=== PATIENT | female | born 2000 | race Caucasian/White ===

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

== ENCOUNTER 2020-08-22 16:47 | Emergency (ER) | payer MEDICARE, OTHER ==
[2020-08-22] MEDS ORDERED: SODIUM CHLORIDE 0.9% 500 ML 500 ML IV ONE (17:33)
[2020-08-22] MEDS ORDERED: diphenhydrAMINE 50 MG/ML 1 ML VIAL IVP STA (17:34)
[2020-08-22] MEDS ORDERED: KETOROLAC 15 MG/ML 1 ML VIAL IVP STA (17:34)
--- NOTE | 2020-08-22 17:43 | ED ---
General Adult HPI - General Chief complaint: Nausea/Vomiting/Diarrhea Stated complaint: headache, nausea/vomiting Time Seen by Provider: 08/22/20 17:22 Source: patient, EMS, RN notes reviewed Mode of arrival: EMS Limitations: no limitations - History of Present Illness Initial comments: 20-year-old white female patient presents to the emergency room with complaints of headache that started on Thursday. Patient states has a frontal headache, had two episodes of vomiting yesterday and one episode of vomiting today. Denies, pain, denies diarrhea. Patient states went to [facility], had a Covid test and it was negative. Patient also given a 500 mL bolus with Zofran prior to arrival with some relief. Patient has a history of headaches usually takes OTC tylenol with relief. no other medical history no surgical history. Patient denies . States is on Depo shot but missed her July dose. Patient states only has one headache a month. Patient asking several times for a week off work in case she gets another headache. -: days(s) (2) Location: head (frontal) Radiation: non-radiation Quality: aching Consistency: intermittent Improves with: rest Worsens with: other (vomiting) Associated Symptoms: nausea/vomiting - Related Data Home Medications Medication Instructions Recorded Confirmed No Known Home Medications 11/18/19 11/18/19 Allergies Allergy/AdvReac Type Severity Reaction Status Date / Time No Known Allergies Allergy Verified 08/22/20 16:56 Review of Systems ROS Statement: Those systems with pertinent positive or pertinent negative responses have been documented in the HPI. ROS Other: All systems not noted in ROS Statement are negative. Past Medical History Past Medical History: No Reported History Additional Past Medical History / Comment(s): migraine History of Any Multi-Drug Resistant Organisms: None Reported Past Surgical History: No Surgical Hx Reported Past Psychological History: Anxiety, Depression Smoking Status: Vaper Past Alcohol Use History: Rare Past Drug Use History: Marijuana General Exam Limitations: no limitations General appearance: alert, in no apparent distress Head exam: Present: atraumatic, normocephalic, normal inspection Eye exam: Present: other (left eye subconjuctival hemmorage lateral side) ENT exam: Present: normal exam, mucous membranes moist Neck exam: Present: normal inspection, full ROM. Absent: tenderness, meningismus, lymphadenopathy Respiratory exam: Present: normal lung sounds bilaterally. Absent: respiratory distress, wheezes, rales, rhonchi, stridor Cardiovascular Exam: Present: regular rate, normal rhythm, normal heart sounds. Absent: systolic murmur, diastolic murmur, rubs, gallop, clicks GI/Abdominal exam: Present: soft, normal bowel sounds. Absent: distended, tenderness, guarding, rebound, rigid Back exam: Present: normal inspection Neurological exam: Present: alert, oriented X3, CN II-XII intact Psychiatric exam: Present: normal affect, normal mood Skin exam: Present: warm, dry, intact, normal color. Absent: rash, cyanosis, diaphoretic Course Vital Signs 08/22/20 16:52 Temperature 98.4 F Pulse Rate 88 Respiratory 18 Rate Blood Pressure 132/67 O2 Sat by Pulse 100 Oximetry Medical Decision Making - Medical Decision Making Patient feeling better after medications and IV fluids. Patient willing to go home and follow up with primary care doctor in 1 week. Case discussed with Dr. Avalos who was also agreeable with this plan. She will be given 2 days off work as requested . Disposition Clinical Impression: Headache Disposition: HOME SELF-CARE Condition: Good Instructions (If sedation given, give patient instructions): Acute Headache (ED), Acute Nausea and Vomiting (ED) Additional Instructions: Continue with Tylenol [id number] for headaches, Benadryl at night may help with headache. increase fluid intake. Follow-up with your doctor in 1 week Is patient prescribed a controlled substance at d/c from ED?: No Referrals: Nurys Cespedes MD [Primary Care Provider] - 1-2 days Time of Disposition: 18:51
[2020-08-22 19:15] VITALS: BP 130/70; PULSE 87; RESP 16; TEMP 98
== END 2020-08-22 19:15 | disposition home or self-care (01) ==
LOC: EEVIPCON 16:47 → EC 16:47
DX: R51.9 Headache, unspecified (principal); H11.32 Conjunctival hemorrhage, left eye; R11.2 Nausea with vomiting, unspecified; F41.9 Anxiety disorder, unspecified; F32.9 Major depressive disorder, single episode, unspecified; F17.290 Nicotine dependence, other tobacco product, uncomplicated
CPT/HCPCS: 99284